=== PATIENT | female | born 1935 | race Caucasian/White ===

== ENCOUNTER 2019-12-02 09:45 | Day surgery (SDC) | payer MEDICARE, MEDICAID ==
[~2019-12-02] VITALS: Ht 152.4 cm; Wt 67.1 kg
[2019-12-02] VITALS (8 sets, daily range): BP systolic 126–171; BP diastolic 56–88
--- NOTE | 2019-12-02 10:45 | NUR ---
Procedure consent obtained via telephone from & POTimur Avery with Raman VAZQUEZ as a witness.
[2019-12-02] MEDS ORDERED: LOSA25TA96 PO (10:49)
[2019-12-02] MEDS ORDERED: PRAV40TA3 PO (10:49)
[2019-12-02] MEDS ORDERED: LEVO112T52 PO (10:49)
[2019-12-02] MEDS ORDERED: DOCU100C40 PO (10:49)
[2019-12-02] MEDS ORDERED: POTA10TA19 PO (10:49)
[2019-12-02] MEDS ORDERED: POLY500P23 (10:49)
[2019-12-02] MEDS ORDERED: FURO-150 PO (10:49)
[2019-12-02] MEDS ORDERED: MELA1TAB28 PO (10:49)
[2019-12-02] MEDS ORDERED: CARV-49 PO (11:05)
[2019-12-02] MEDS ORDERED: DULO-31 PO (11:05)
[2019-12-02] MEDS ORDERED: ACAR25TA PO (11:05)
--- NOTE | 2019-12-02 12:06 | NUR ---
Raman VAZQUEZ phoned, CXR resulted, pt can be discharged if medically stable.
--- NOTE | 2019-12-02 12:44 | NUR ---
Called [facility] to give report, no one available to receive report on pt. 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
== END 2019-12-02 12:40 ==
LOC: SSTAY O 09:45
PROVIDERS: ATTEND Radiology Diagnostic Radiology
DX: J90 Pleural effusion, not elsewhere classified (principal); E11.9 Type 2 diabetes mellitus without complications; D64.9 Anemia, unspecified; I11.0 Hypertensive heart disease with heart failure; I50.9 Heart failure, unspecified; F03.90 Unspecified dementia, unspecified severity, without behavioral disturbance, psychotic disturbance, mood disturbance, and anxiety; E03.9 Hypothyroidism, unspecified; I25.10 Atherosclerotic heart disease of native coronary artery without angina pectoris; F32.9 Major depressive disorder, single episode, unspecified; Z79.899 Other long term (current) drug therapy
CPT/HCPCS: 32555; 71045

== ENCOUNTER 2020-01-04 09:35 | Day surgery (SDC) | payer MEDICARE, OTHER ==
[~2020-01-04] VITALS: Ht 160 cm; Wt 67.5 kg
[~2020-01-04 09:35] MED LIST: ACAR25TA PO; CARV-49 PO; DOCU100C40 PO; DULO-31 PO; FURO-150 PO; LEVO112T52 PO; LOSA25TA96 PO; MELA1TAB28 PO; POLY500P23; POTA10TA19 PO; PRAV40TA3 PO
[2020-01-04] MEDS ORDERED: albumin 25% 100mL bottle x 1 IV PRN (10:05)
[2020-01-04] MEDS ORDERED: normal saline 1000ml 1,000 ML IV PRN (10:05)
[2020-01-04 10:15] VITALS: BP 169/74
[2020-01-04 10:36] VITALS: BP 152/72
[2020-01-04 10:51] VITALS: BP 141/74
[2020-01-04 11:06] VITALS: BP 138/67
[2020-01-04 11:21] VITALS: BP 143/64
== END 2020-01-04 11:49 | disposition home or self-care (01) ==
LOC: SSTAY O 09:35
PROVIDERS: ATTEND Radiology Vascular & Interventional Radiology
DX: J90 Pleural effusion, not elsewhere classified (principal); E11.9 Type 2 diabetes mellitus without complications; I11.0 Hypertensive heart disease with heart failure; I50.9 Heart failure, unspecified; F03.90 Unspecified dementia, unspecified severity, without behavioral disturbance, psychotic disturbance, mood disturbance, and anxiety; E78.5 Hyperlipidemia, unspecified; E03.9 Hypothyroidism, unspecified; F32.9 Major depressive disorder, single episode, unspecified; I25.10 Atherosclerotic heart disease of native coronary artery without angina pectoris; M19.90 Unspecified osteoarthritis, unspecified site; Z88.8 Allergy status to other drugs, medicaments and biological substances; Z79.899 Other long term (current) drug therapy
CPT/HCPCS: 32555; 71045